=== PATIENT | female | born 1995 | race Caucasian/White ===

== ENCOUNTER 2017-04-14 18:00 | Emergency (ER) | payer BC ==
[2017-04-14 18:16] VITALS: BP 121/70
[2017-04-14] MEDS ORDERED: Take Home: Doxycycline 100 MG Tab, 4 Tab Pack PO ONE (18:37)
--- NOTE | 2017-04-16 09:01 | ER ---
Date of Service: 04/14/2017 SUBJECTIVE: Joanie presents to the emergency room with complaints of an earring that is stuck in her right earlobe. It is a very small brock earring that has pulled posteriorly through the earlobe and that portion is lodged in the lower lobe of the ear. The patient's mother was unable to get the back of the earring off the earlobe. They subsequently presented to the emergency room for help in removing the stud. PAST MEDICAL HISTORY: Unknown type cardiac arrhythmia. MEDICATIONS: Toprol-XL 25 mg daily. ALLERGIES: Sulfa. REVIEW OF SYSTEMS: Denies any fever or chills. She states that she has noticed some scant discharge coming from the right lower earlobe. PHYSICAL EXAMINATION: General: This is a 21-year-old female patient, who is in no acute distress. Vital Signs: Blood pressure is 121/70, pulse rate is 67, temperature is 36.3, respiratory rate 16, O2 saturations are 99%. Skin: Warm, pink, and dry. HEENT: Again, the brock stud is pulled into the earlobe retirement between the anterior and posterior hole in the earlobe. There is mild erythema noted to the earlobe with some scant clear discharge noted. Remainder of her physical examination is within normal limits. EMERGENCY ROOM COURSE: The earlobe was cleansed with chlorhexidine and a total of 1 mL of 1% lidocaine was used to anesthetize the lower earlobe. Using a curved Kalyani forceps, the back of the stud was removed. Subsequently, was able to push the stud out. I was able to express a small amount of clear discharge from the earlobe which was cultured. The patient remained stable in my care in the emergency room. ASSESSMENT: 1. Stuck hearing stud in right ear. 2. Cellulitis to right lower earlobe. PLAN: The patient will be discharged. I did start her on doxycycline 100 mg twice daily for 10 days. Keep the area open to the air as much as possible. Return if there is any increased discharge, redness, streaking, or other worrisome signs or symptoms. All questions were answered. MWK: 04/15/2017 18:48:31 MODL: 04/16/2017 00:16:52 /[id number]
== END 2017-04-14 18:49 | disposition home or self-care (01) ==
LOC: VM.ED 18:00
DX: T16.1XXA Foreign body in right ear, initial encounter (principal); H60.11 Cellulitis of right external ear; Z88.2 Allergy status to sulfonamides
CPT/HCPCS: 69200; 87070; 87077; 87147; 87186; 96372; 99282; A9270

== ENCOUNTER 2019-04-05 13:57 | Emergency (ER) | payer BC ==
[2019-04-05 14:18] VITALS: BP 122/74
[2019-04-05 15:24] LABS: CHLORIDE,CL 101 mmol/L (98-107); SODIUM,NA 140 mmol/L (136-145)
--- NOTE | 2019-04-05 15:27 | EDM.PDOC ---
ED HPI GENERAL MEDICAL PROBLEM - General Chief Complaint: General Stated Complaint: eyes are yellow Time Seen by Provider: 04/05/19 14:05 Source of Information: Reports: Patient History Limitations: Reports: No Limitations - History of Present Illness INITIAL COMMENTS - FREE TEXT/NARRATIVE: Pt. presents to ER with complaints of concerns of scleral icterus. Pt. was diagnosed with mono last . She states that the has been quite fatigued, nauseated, and has had decreased appetite. She states that she does have some diffuse upper abd. discomfort, more on the L side than the R. She states that her urine is dark in color. She states that she has been constipated. She has had some congestion and rhinorrhea. No bloody stools. No chest pain or shortness of breath. Onset: Today Onset Date: 04/05/19 Associated Symptoms: Reports: Fever/Chills, Malaise, Nausea/Vomiting, Weakness Generalized Pain Score (Numeric/FACES): 2 - Related Data Allergies Allergy/AdvReac Type Severity Reaction Status Date / Time Sulfa (Sulfonamide Allergy Rash Verified 04/05/19 14:10 Antibiotics) Home Meds: Home Meds Metoprolol Succinate [Toprol XL] 25 mg PO DAILY 11/24/16 [History] Albuterol [Proventil HFA] 1 puff IH ASDIRECTED 09/18/18 [History] Ibuprofen 400 mg PO Q4H PRN 04/05/19 [History] Ondansetron HCl [Ondansetron] 8 mg SL Q8H PRN 04/05/19 [History] Past Medical History Cardiovascular History: Reports: Arrhythmia - Past Surgical History HEENT Surgical History: Reports: Other (See Below) Other HEENT Surgeries/Procedures: [place] teeth Social & Family History - Tobacco Use Smoking Status *Q: Never Smoker ED ROS GENERAL - Review of Systems Review Of Systems: See Below Constitutional: Reports: Fever, Chills, Malaise, Weakness, Fatigue HEENT: Reports: No Symptoms Respiratory: Reports: No Symptoms Cardiovascular: Reports: No Symptoms Endocrine: Reports: No Symptoms GI/Abdominal: Reports: No Symptoms : Reports: No Symptoms Musculoskeletal: Reports: No Symptoms Skin: Reports: No Symptoms Neurological: Reports: No Symptoms Psychiatric: Reports: No Symptoms Hematologic/Lymphatic: Reports: No Symptoms Immunologic: Reports: No Symptoms ED EXAM, GENERAL - Physical Exam Exam: See Below Exam Limited By: No Limitations General Appearance: Alert, WD/WN, No Apparent Distress Eye Exam: Bilateral Eye: Other (possible very mild scleral icterus) Ears: Normal External Exam, Normal Canal, Hearing Grossly Normal, Normal TMs Ear Exam: Bilateral Ear: Auricle Normal, Canal Normal, TM normal Nose: Normal Inspection, Normal Mucosa, No Blood Throat/Mouth: Normal Lips, Normal Teeth, Normal Gums, Normal Oropharynx, Normal Voice, No Airway Compromise, Other (hypopharynx is erythematous) Head: Atraumatic, Normocephalic Neck: Normal Inspection, Supple, Non-Tender, Full Range of Motion Respiratory/Chest: No Respiratory Distress, Lungs Clear, Normal Breath Sounds, No Accessory Muscle Use, Chest Non-Tender Cardiovascular: Normal Peripheral Pulses, Regular Rate, Rhythm, No Edema, No Gallop, No JVD, No Murmur, No Rub Peripheral Pulses: 4+: Radial (L), Radial (R) GI/Abdominal: Normal Bowel Sounds, Soft, Non-Tender, No Organomegaly, No Distention, No Abnormal Bruit, No Mass, Pelvis Stable (Female) Exam: Deferred Rectal (Female) Exam: Deferred Back Exam: Normal Inspection, Full Range of Motion Extremities: Normal Inspection, Normal Range of Motion, Non-Tender, No Pedal Edema, Normal Capillary Refill Neurological: Alert, Oriented, CN II-XII Intact, Normal Cognition, Normal Gait, Normal Reflexes, No Motor/Sensory Deficits Psychiatric: Normal Affect, Normal Mood Skin Exam: Warm, Dry, Intact, Normal Color, No Rash Lymphatic: No Adenopathy Course - Vital Signs Last Recorded V/S: Last Vital Signs Temp 37.4 C 04/05/19 14:05 Pulse 90 04/05/19 14:05 Resp 16 04/05/19 14:05 BP 122/74 04/05/19 14:05 Pulse Ox 97 04/05/19 14:05 - Orders/Labs/Meds Orders: Active Orders 24 hr Category Date Time Status CYTOMEGALOVIRUS (CMV) AB, IGM [REF] Stat Lab 04/05/19 14:45 Received Labs: Laboratory Tests 04/05/19 04/05/19 04/05/19 Range/Units 14:45 14:45 14:45 WBC 6.6 (4.0-10.0) x10^3/uL RBC 4.89 (4.00-5.50) x10^6/uL Hgb 15.2 (12.0-16.0) g/dL Hct 42.8 (33.0-47.0) % MCV 87.5 (78.0-93.0) fL MCH 31.1 (26.0-32.0) pg MCHC 35.5 (32.0-36.0) g/dL RDW Coeff of Valentin 12.3 (10.0-15.0) % Plt Count 139 D (130-400) x10^3/uL Add Manual Diff Yes Neutrophils % (Manual) 15 L (50-80) % Band Neutrophils % 1 (0-6) % Lymphocytes % (Manual) 51 H (25-50) % Atypical Lymphs % 4 H (0) % Monocytes % (Manual) 16 H (2-11) % Eosinophils % (Manual) 1 (0-4) % Metamyelocytes % 6 H (0) % Myelocytes % 6 H (0) % Platelet Estimate Adequate Clumped Platelets Rare H PT 11.4 (10.0-12.8) SEC INR 1.0 L (2.0-3.5) Sodium 140 (136-145) mmol/L Potassium 4.0 (3.5-5.1) mmol/L Chloride 101 (98-107) mmol/L Carbon Dioxide 26 (21-32) mmol/L Anion Gap 17.0 (10-20) mmol/L BUN 11 (7-18) mg/dL Creatinine 1.0 (0.55-1.02) mg/dL Est Cr Clr Drug Dosing 89.85 mL/min Estimated GFR (MDRD) > 60 Glucose 78 (74-106) mg/dL Calcium 9.2 (8.5-10.1) mg/dL Corrected Calcium 9.60 (8.5-10.1) mg/dL Total Bilirubin 7.7 H (0.2-1.0) mg/dL AST 528 H (15-37) U/L ALT 694 H (14-59) U/L Alkaline Phosphatase 409 H (46-116) U/L Lactate Dehydrogenase 567 H (81-234) U/L C-Reactive Protein < 0.2 (<=0.9) mg/dL Total Protein 8.1 (6.4-8.2) g/dL Albumin 3.5 (3.4-5.0) g/dL Globulin 4.6 Albumin/Globulin Ratio 0.76 Amylase 36 (25-115) U/L Lipase 167 (73-393) U/L Departure - Departure Time of Disposition: 16:00 Disposition: Home, Self-Care 01 Clinical Impression: Mononucleosis, infectious, with hepatitis, Elevated transaminase level - Discharge Information Instructions: Infectious Mononucleosis Referrals: Radha Alicia PA-C [Primary Care Provider] - Forms: ED Department Discharge Additional Instructions: Follow-up in clinic tomorrow for repeat lab testing I would discontinue use of the tylenol at this time. Continue with the anali Return to ER if she is unable to keep down fluids - My Orders Last 24 Hours: My Active Orders 04/05/19 14:45 CYTOMEGALOVIRUS (CMV) AB, IGM [REF] Stat - Assessment/Plan Last 24 Hours: My Active Orders 04/05/19 14:45 CYTOMEGALOVIRUS (CMV) AB, IGM [REF] Stat Plan: I spoke with Dr. Alicia regarding this patient. She will follow-up with her tomorrow. She will need repeat labs at that time. I did order a RUQ ultrasound for tomorrow as well. She states that she feels well enough to go home. Advised her to return if she is unable to hold down fluids, if she has any increased discomfort, etc.
== END 2019-04-05 16:00 | disposition home or self-care (01) ==
LOC: VM.ED 13:57
DX: K75.9 Inflammatory liver disease, unspecified (principal); B27.90 Infectious mononucleosis, unspecified without complication; R74.0 Nonspecific elevation of levels of transaminase and lactic acid dehydrogenase [LDH]; Z88.2 Allergy status to sulfonamides
CPT/HCPCS: 36415; 80053; 82150; 83615; 83690; 85025; 85610; 86140; 86645; 99284

== ENCOUNTER 2019-04-06 16:28 | Observation (INO) | payer BC ==
[2019-04-06] MEDS ORDERED: Ibuprofen 200 MG Tab PO PRN (17:05)
[2019-04-06] MEDS ORDERED: Ondansetron 4 MG/2 ML SDV IV PRN (17:05)
[2019-04-06] MEDS ORDERED: Promethazine 25 MG Tab PO PRN (17:11)
[2019-04-06] MEDS ORDERED: Sodium Chloride 0.9% 500 ML IV SCH (17:15)
[2019-04-06] MEDS: Sodium Chloride 0.9% 1,000 ML IV SCH (18:49)
[2019-04-06] MEDS ORDERED: Albuterol 0.083% 2.5 MG/3 ML Neb Soln INH PRN (20:00)
[2019-04-06] MEDS: FLOVENT 110 MCG INH SCH (21:00)
[2019-04-06] MEDS ORDERED: Metoprolol Succinate 25 MG Tab.ER PO SCH (21:00)
--- NOTE | 2019-04-06 23:47 | HP ---
CHIEF COMPLAINT: Nausea and jaundice. HISTORY OF PRESENT ILLNESS: This is a 23-year-old female who had classical mono symptoms with sore throat and fatigue and fevers, diagnosed by [facility] testing on 03/31/2019, 6 days ago. She was recommended for symptomatic treatments, but became more nauseated on the 04/03/2019 and then on 04/05/2019 she presented to the ER and was found to have elevated bilirubin, actually, her mom had noted some yellowing in her eyes, it was up to 7.7, AST 528, and ALT 694. She has only been eating when she takes the Zofran. She does feel that is helping. She has not had a bowel movement in 1-week. She has not had good intake, but her sore throat is now better. She has not vomited since last and her temperature was only around 99 today. Otherwise, she has not had any trouble breathing. She has not had any shortness of breath or cough. 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 ALLERGIES: Include sulfa. MEDICATIONS: Her medication list does show her to have Zofran p.r.n., Flovent inhaler 2 times a day, Toprol 25 mg daily, albuterol as needed, Drysol, Differin gel and Flonase nasal spray. PAST MEDICAL HISTORY: Includes: 1. Allergic rhinitis, reactive airway disease, not felt to be asthma. 2. Sinus arrhythmia with heart rates in the past, up to the 190s. PAST SURGICAL HISTORY: Surgically, she has had a none listed. FAMILY HISTORY: Both parents are living. Father has asthma. 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 She denies any alcohol use. She has a boyfriend. She does not smoke. REVIEW OF SYSTEMS: General: Otherwise, she just felt very fatigued. She has had fever. Weight has stayed about the same. HEENT: Again, sore throat is improved. Cardiac: No chest pains. No recent palpitations. Respiratory: No breathing trouble. GI: She denies any abdominal pain. Otherwise, all systems reviewed and found to be negative. LABORATORY DATA: Her lab work done through the clinic today was to repeat a hepatic panel showed some improvement with AST down to 416, ALT down to 579, bilirubin 8.2, indirect 1.7, direct 6.5, albumin 3.8, alkaline phosphatase 459. INR was 1 yesterday. PHYSICAL EXAMINATION: Vital Signs: Do show her last menstrual period to have been on the 03/24/2019. Weight 140 pounds, blood pressure 112/64, respiratory rate 16, temperature 98, pulse 68, O2 of 98% on room air. Prior to getting fluids; her blood pressure was in the 80s, but she is a healthy athlete normally. Blood pressures are in the 90s to low on 100s. General: She is jaundiced, but in no acute distress. Heart: Regular rate and rhythm. S1, S2 without murmur. Lungs: Lung sounds are clear to auscultation bilaterally without crackles or wheezes. Abdomen: Has positive bowel sounds. Soft, nontender. Extremities: Warm and dry. No edema. Mental Status: She is alert. She is orientated x3. Eyes: Sclerae are icteric. ASSESSMENT: 1. Cordell-Sanders virus hepatitis. Did discuss with the GI physician on-call, who did recommend symptomatic management. He felt it would be unlikely to need further extensive workup. Did expect the bilirubin to start improving, but would trail the LFTs by a day or so. If things do not improve, we will arrange for right upper quadrant ultrasound. 2. Nausea, presumably due to the hepatitis. We will have her on IV Zofran, left p.r.n. Phenergan available, we can also add other things if needed. 3. Constipation. We will get her on some scheduled stool softeners and senna. Diet will be as tolerated. We will see how she does. 4. Reactive airway disease. We will have her inhalers available. 5. History of sinus tachycardia. She will continue on her Toprol. PLAN: At this point, the patient is admitted for observation. We will do IV fluids, IV nausea medications. Repeat lab work with an INR tomorrow. Code level 1. DVT prophylaxis not ordered as the patient's stay is likely going to be less than 24 hours. She is up and ambulatory. She is quite thin and at low risk for DVT. MKA: 04/06/2019 17:47:38 MODL: 04/06/2019 23:41:59 /[id number]
[2019-04-07] MEDS: Sodium Chloride 0.9% 1,000 ML IV SCH (02:54)
[2019-04-07 05:39] VITALS: BP 125/72
[2019-04-07] MEDS: FLOVENT 110 MCG INH SCH (07:38)
[2019-04-07 07:50] LABS: CHLORIDE,CL 105 mmol/L (98-107); SODIUM,NA 137 mmol/L (136-145)
[2019-04-07] MEDS ORDERED: Metoprolol Succinate 25 MG Tab.ER PO SCH (08:00)
[2019-04-07] MEDS ORDERED: Mometasone Furoate Powder 220 MCG/Puff 14 Dose Inhaler INH SCH (08:00)
--- NOTE | 2019-04-07 16:20 | DISCH ---
PRIMARY DISCHARGE DIAGNOSES: 1. Cordell-Sanders hepatitis. 2. Cholestatic jaundice due to Cordell-Sanders hepatitis. 3. Nausea secondary to Cordell-Sanders hepatitis and Cholestatic jaundice. 4. Recent mono infection. 5. History of sinus tachycardia. 6. Allergic rhinitis. 7. Reactive airway disease. 8. Constipation, resolved. REASON FOR ADMISSION: On the date of admission, this 23-year-old female followed up in the clinic after being in the ER with elevated liver enzymes. Her liver enzymes were trending down slightly, but her bilirubin went up to 8.2. Her peak ALT was 694, AST 528. She received 1 L of fluids as her blood pressures were low. Oral intake is poor due to nausea despite having oral Zofran. She did get a dose of IV Zofran in the clinic, was admitted for further IV fluids, and lab monitoring. This morning, does show some improvement in her lab work with ALT down to 471, AST 299, bilirubin down to 7.4, alkaline phosphatase at 433. She had some bowel movements after receiving senna. She is symptomatically feeling better. She did not require any IV nausea medications. She did have some cramping in the abdomen, but only before bowel movements. Otherwise, no abdominal pain. She is feeling like eating this morning. Overall, she is clinically improved and arrangements were made for her discharge. At the time of discharge, her vitals included a temperature of 98.7, pulse 67, blood pressure 125/72, respiratory rate 18, O2 of 98% on room air. PHYSICAL EXAMINATION: General: She is in no acute distress. Heart: Regular rate and rhythm with murmur. Lungs: Lung sounds are clear to auscultation bilaterally without crackles or wheezes. Abdomen: Has positive bowel sounds. Soft, nontender. Extremities: Warm and dry. No edema. Skin: She still has some mild jaundice appearance. Mental Status: Alert and orientated x3. DISCHARGE PLANS AND INSTRUCTIONS: She will follow up with Radha Alicia in the clinic on 04/16/2019. Lab work will be done this Saturday and then repeated in a week or 2 depending on need. No ultrasound at this point is needed, but she should not return to [facility] for at least 1 month. She may continue Zofran as needed for nausea. She may resume all her skin creams at home. She will take a stool softener, milk of magnesia only if needed and may continue Motrin 600 three times a day as needed for pain, although she states all of her joint and muscle pains have improved. MKA: 04/07/2019 08:27:28 MODL: 04/07/2019 16:12:44 /[id number]
== END 2019-04-07 09:30 | disposition home or self-care (01) ==
LOC: VM.MS 16:30
PROVIDERS: ADMIT Internal Medicine; ATTEND Internal Medicine
DX: R11.0 Nausea (principal); B00.81 Herpesviral hepatitis; B27.00 Gammaherpesviral mononucleosis without complication; K59.00 Constipation, unspecified; R00.0 Tachycardia, unspecified; J45.909 Unspecified asthma, uncomplicated; Z88.2 Allergy status to sulfonamides; Z79.51 Long term (current) use of inhaled steroids; Z79.899 Other long term (current) drug therapy
CPT/HCPCS: 36415; 80053; 85025; 85610; 96360; 96361; A9270; G0378; J7030

== ENCOUNTER 2019-04-10 19:27 | Emergency (ER) | payer BC ==
--- NOTE | 2019-04-10 19:58 | EDM.PDOC ---
ED HPI GENERAL MEDICAL PROBLEM - General Chief Complaint: ENT Problem Stated Complaint: Sore throat, recent diagnosis of [place] Time Seen by Provider: 04/10/19 19:35 Source of Information: Reports: Patient History Limitations: Reports: No Limitations - History of Present Illness INITIAL COMMENTS - FREE TEXT/NARRATIVE: Patient comes into the emergency department with complaint of sore throat. Patient states that her sore throat started approximately 2 days ago. She states that it is difficult to swallow. She denies having any fever however she states that she did feel chilled earlier today. She denies any pus pocket formation that she could tell. She denies any decrease in activity or oral intake. She states that she does have a diagnosis of mono approximately 2 weeks ago and has been having intermittent sore throat since then. She has felt great 3 or 4 days prior to have in the start of the sore throat again. She denies any chest pain, shortness of breath, GI upset, nausea or vomiting, or urinary issues. Patient is concerned that she could possibly have strep or complication of mono and would like to check it out. 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 - Related Data Allergies Allergy/AdvReac Type Severity Reaction Status Date / Time Sulfa (Sulfonamide Allergy Rash Verified 04/05/19 14:10 Antibiotics) Home Meds: Home Meds Metoprolol Succinate [Toprol XL] 25 mg PO DAILY 11/24/16 [History] Albuterol [Proventil HFA] 2 puff IH Q4HR PRN 09/18/18 [History] Ondansetron HCl [Ondansetron] 4 mg SL Q6H PRN 04/05/19 [History] Fluticasone Propionate [Flovent HFA 110 MCG] 2 puff IN BID 04/06/19 [History] Past Medical History Cardiovascular History: Reports: Arrhythmia Respiratory History: Reports: Asthma - Past Surgical History HEENT Surgical History: Reports: Other (See Below) Other HEENT Surgeries/Procedures: [place] teeth Social & Family History - Caffeine Use Caffeine Use: Reports: None ED ROS GENERAL - Review of Systems Review Of Systems: See Below Constitutional: Reports: No Symptoms HEENT: Reports: Throat Pain Respiratory: Reports: No Symptoms Cardiovascular: Reports: No Symptoms Endocrine: Reports: No Symptoms GI/Abdominal: Reports: No Symptoms : Reports: No Symptoms Musculoskeletal: Reports: No Symptoms Skin: Reports: No Symptoms Neurological: Reports: No Symptoms Psychiatric: Reports: No Symptoms Hematologic/Lymphatic: Reports: No Symptoms Immunologic: Reports: No Symptoms ED EXAM, GENERAL - Physical Exam Exam: See Below General Appearance: Alert, WD/WN, No Apparent Distress Eye Exam: Bilateral Eye: EOMI, PERRL Ears: Normal External Exam, Normal Canal, Hearing Grossly Normal, Normal TMs Ear Exam: Bilateral Ear: Auricle Normal, Canal Normal, TM normal Throat/Mouth: Normal Inspection, Normal Lips, Normal Teeth, Normal Gums, Normal Oropharynx, Normal Voice, No Airway Compromise, Inflammation (2+ tonsil right, no tonsil visualized left. no patechia or pus pockets noted) Head: Atraumatic, Normocephalic Neck: Normal Inspection, Supple, Non-Tender, Full Range of Motion. No: Limited Range of Motion, Lymphadenopathy (L), Lymphadenopathy (R), Tender Lateral, Tender Midline, Thyromegaly Respiratory/Chest: No Respiratory Distress, Lungs Clear, Normal Breath Sounds, No Accessory Muscle Use, Chest Non-Tender Cardiovascular: Normal Peripheral Pulses, Regular Rate, Rhythm Back Exam: Normal Inspection, Full Range of Motion Extremities: Normal Inspection, Normal Range of Motion Neurological: Alert, Oriented Skin Exam: Warm, Dry, Intact, Normal Color Departure - Departure Time of Disposition: 19:55 Disposition: Home, Self-Care 01 Condition: Good Clinical Impression: Sore throat - Discharge Information *PRESCRIPTION DRUG MONITORING PROGRAM REVIEWED*: Not Applicable *COPY OF PRESCRIPTION DRUG MONITORING REPORT IN PATIENT JAIMEE: Not Applicable Instructions: Sore Throat, [id number] Referrals: Radha Alicia PA-C [Primary Care Provider] - Additional Instructions: 1. rest 2. use salt water gargle 3. take ibuprofen and Tylenol as needed for pain and discomfort 4. Right not no indication for swabbing or suspecting strep throat. If your tempature arise great than 101.4, pus pockets on the tonsils, foul odor from the mouth, or purple spots on the tongue please return or follow up with your PCP for re-evaluation 5. activity and diet 6. Follow up as needed 7. Call with any questions or concerns you may have
[2019-04-10 20:04] VITALS: BP 106/63
== END 2019-04-10 20:05 | disposition home or self-care (01) ==
LOC: VM.ED 19:27
DX: J02.9 Acute pharyngitis, unspecified (principal); J45.909 Unspecified asthma, uncomplicated; Z88.2 Allergy status to sulfonamides; Z79.899 Other long term (current) drug therapy
CPT/HCPCS: 99282

== ENCOUNTER 2019-07-12 12:12 | Emergency (ER) | payer BC ==
[2019-07-12 12:26] VITALS: BP 122/76; PULSE 80
--- NOTE | 2019-07-12 12:45 | EDM.PDOC ---
ED HPI GENERAL MEDICAL PROBLEM - General Chief Complaint: Abdominal Pain Stated Complaint: STOMACH PAIN Time Seen by Provider: 07/12/19 12:27 Source of Information: Reports: Patient, Old Records, RN, RN Notes Reviewed History Limitations: Reports: No Limitations - History of Present Illness INITIAL COMMENTS - FREE TEXT/NARRATIVE: She has been having pain in mid lower abdomen which started this past week. On Saturday she starting having significant cramping. She has had something similar in the past which was a UTI> SHe was feeling nauseated also without actual vomiting. She had a zofram from previously whiich she took and this helped the nausea. She thought she had the stomach flu. She woke up at 4 am Sat with terrible cramping. She had a low grade fever earlier in the week which didn't last long. LMP June 21. Menses are usually regular. She gets menstrual cramps but not in the middle of the month. This weekend her bowels seem normal but last week it seemed that she was going more often. She had some change in color and such this past week which she attributed to coffee. No headache, No URI sx, some burning on urination. She has not noticed increased frequency but she goes often all the time. Onset: Gradual Onset Date: 07/05/19 Duration: Week(s):, Getting Worse, Waxing/Waning Location: Reports: Abdomen, Radiates to (lower back) Quality: Reports: Ache, Other (cramping intermittently) Severity: Severe Improves with: Reports: Heat Therapy Worsens with: Reports: Eating Associated Symptoms: Reports: Loss of Appetite, Malaise, Nausea/Vomiting. Denies: Diaphoresis, Shortness of Breath lower abd Pain Score (Numeric/FACES): 4 - Related Data Allergies Allergy/AdvReac Type Severity Reaction Status Date / Time Sulfa (Sulfonamide Allergy Rash Verified 07/12/19 12:23 Antibiotics) Home Meds: Home Meds Metoprolol Succinate [Toprol XL] 25 mg PO DAILY 11/24/16 [History] Albuterol [Proventil HFA] 2 puff IH Q4HR PRN 09/18/18 [History] Fluticasone Propionate [Flovent HFA 110 MCG] 2 puff IN BID 04/06/19 [History] Past Medical History Cardiovascular History: Reports: Arrhythmia Respiratory History: Reports: Asthma - Past Surgical History Head Surgeries/Procedures: Reports: Other (See Below) (wisdom teeth) HEENT Surgical History: Reports: Other (See Below) Other HEENT Surgeries/Procedures: Barry teeth, [place] 03/28/19 Social & Family History - Tobacco Use Smoking Status *Q: Never Smoker Tobacco Use Within Last Twelve Months: No Second Hand Smoke Exposure: No - Caffeine Use Caffeine Use: Reports: Coffee - Alcohol Use Alcohol Use History: Yes Alcohol Use in Last Twelve Months: Yes Alcohol Use Comment: She drinks rarely; about once per month about 3 drinks per time - Sexual History Sexual History: Reports: Single Partner - Living Situation & Occupation Living situation: Reports: Single Occupation: Student ED ROS GENERAL - Review of Systems Review Of Systems: See Below Constitutional: Reports: Malaise, Decreased Appetite. Denies: Fever, Chills HEENT: Reports: No Symptoms Respiratory: Reports: No Symptoms Cardiovascular: Reports: No Symptoms Endocrine: Reports: No Symptoms GI/Abdominal: Reports: Abdominal Pain, Decreased Appetite, Other (stool has been different past week) : Reports: Dysuria, Frequency Musculoskeletal: Reports: Joint Pain (she has pain in both knees from tendinosis when she plays volleyball) Skin: Reports: No Symptoms Neurological: Reports: No Symptoms Psychiatric: Reports: Anxiety Hematologic/Lymphatic: Reports: No Symptoms Immunologic: Reports: No Symptoms ED EXAM, GI/ABD - Physical Exam Exam: See Below Exam Limited By: No Limitations General Appearance: WD/WN, No Apparent Distress Eyes: Bilateral: Normal Appearance, EOMI Ears: Normal External Exam, Normal TMs Nose: Normal Inspection Throat/Mouth: Normal Inspection, Normal Lips, Normal Oropharynx, Normal Voice, No Airway Compromise Neck: Normal Inspection, Supple, Non-Tender. No: Lymphadenopathy (L), Lymphadenopathy (R), Thyromegaly Respiratory/Chest: No Respiratory Distress, Lungs Clear, Normal Breath Sounds, No Accessory Muscle Use Cardiovascular: Regular Rate, Rhythm, No Edema, No Murmur GI/Abdominal Exam: Normal Bowel Sounds, Soft, No Organomegaly, No Distention, No Mass, Tender (mild tenderness RLQ to palpation. No rebound or guarding or masses). No: Guarding, Rebound, Mass Back Exam: Normal Inspection, Full Range of Motion. No: CVA Tenderness (L), CVA Tenderness (R) Extremities: Normal Inspection, Normal Range of Motion, No Pedal Edema Neurological: Alert, Oriented, Normal Cognition, Normal Gait, No Motor/Sensory Deficits Psychiatric: Normal Affect, Normal Mood Skin Exam: Warm, Dry, Intact, Normal Color, No Rash Lymphatic: No Adenopathy Course - Vital Signs Last Recorded V/S: Last Vital Signs Temp 97.5 F 07/12/19 12:24 Pulse 80 07/12/19 12:24 Resp 16 07/12/19 12:24 BP 122/76 07/12/19 12:24 Pulse Ox - Orders/Labs/Meds Labs: Laboratory Tests 07/12/19 07/12/19 07/12/19 Range/Units 12:39 12:39 12:41 WBC 5.4 (4.0-10.0) x10^3/uL RBC 5.21 (4.00-5.50) x10^6/uL Hgb 15.3 D (12.0-16.0) g/dL Hct 45.1 (33.0-47.0) % MCV 86.6 (78.0-93.0) fL MCH 29.4 (26.0-32.0) pg MCHC 33.9 (32.0-36.0) g/dL RDW Coeff of Valentin 12.3 (10.0-15.0) % Plt Count 250 D (130-400) x10^3/uL Neut % (Auto) 63.7 (50.0-80.0) % Lymph % (Auto) 24.6 L (25.0-50.0) % [place] % (Auto) 10.0 (2.0-11.0) % Eos % (Auto) 1.3 (0.0-4.0) % Baso % (Auto) 0.4 (0.2-1.2) % Sodium (136-145) mmol/L Potassium (3.5-5.1) mmol/L Chloride (98-107) mmol/L Carbon Dioxide (21-32) mmol/L Anion Gap (10-20) mmol/L BUN (7-18) mg/dL Creatinine (0.55-1.02) mg/dL Est Cr Clr Drug Dosing mL/min Estimated GFR (MDRD) Glucose (74-106) mg/dL Calcium (8.5-10.1) mg/dL Corrected Calcium (8.5-10.1) mg/dL Total Bilirubin (0.2-1.0) mg/dL AST (15-37) U/L ALT (14-59) U/L Alkaline Phosphatase (46-116) U/L Total Protein (6.4-8.2) g/dL Albumin (3.4-5.0) g/dL Globulin Albumin/Globulin Ratio Urine Color Yellow (YELLOW) Urine Appearance Clear (CLEAR) Urine pH 7.0 (5.0-8.0) Ur Specific [place] 1.020 Urine Protein Negative (NEGATIVE) mg/dL Urine Glucose (UA) Negative (NEGATIVE) mg/dL Urine Ketones Negative (NEGATIVE) mg/dL Urine Occult Blood Negative (NEGATIVE) Urine Nitrite Negative (NEGATIVE) Urine Bilirubin Negative (NEGATIVE) Urine Urobilinogen 0.2 (0.2) EU/dL Ur Leukocyte Esterase Trace H (NEGATIVE) Urine RBC Not seen (NOT SEEN) /HPF Urine WBC 0-5 (NOT SEEN) /HPF Ur Squamous Epith Cells Rare (NEGATIVE) /HPF Urine Bacteria Few H (NEGATIVE) /HPF Urine Mucus Moderate H (NEGATIVE) /LPF Urine Yeast (Budding) Not seen Urine HCG, Qual Negative (NEGATIVE) 07/12/19 Range/Units 12:41 WBC (4.0-10.0) x10^3/uL RBC (4.00-5.50) x10^6/uL Hgb (12.0-16.0) g/dL Hct (33.0-47.0) % MCV (78.0-93.0) fL MCH (26.0-32.0) pg MCHC (32.0-36.0) g/dL RDW Coeff of Valentin (10.0-15.0) % Plt Count (130-400) x10^3/uL Neut % (Auto) (50.0-80.0) % Lymph % (Auto) (25.0-50.0) % [place] % (Auto) (2.0-11.0) % Eos % (Auto) (0.0-4.0) % Baso % (Auto) (0.2-1.2) % Sodium 141 (136-145) mmol/L Potassium 3.9 (3.5-5.1) mmol/L Chloride 102 (98-107) mmol/L Carbon Dioxide 27 (21-32) mmol/L Anion Gap 15.9 (10-20) mmol/L BUN 15 (7-18) mg/dL Creatinine 1.0 (0.55-1.02) mg/dL Est Cr Clr Drug Dosing 89.21 mL/min Estimated GFR (MDRD) > 60 Glucose 91 (74-106) mg/dL Calcium 9.3 (8.5-10.1) mg/dL Corrected Calcium 9.06 (8.5-10.1) mg/dL Total Bilirubin 0.4 (0.2-1.0) mg/dL AST 33 (15-37) U/L ALT 47 (14-59) U/L Alkaline Phosphatase 83 (46-116) U/L Total Protein 8.9 H (6.4-8.2) g/dL Albumin 4.3 (3.4-5.0) g/dL Globulin 4.6 Albumin/Globulin Ratio 0.93 Urine Color (YELLOW) Urine Appearance (CLEAR) Urine pH (5.0-8.0) Ur Specific [place] Urine Protein (NEGATIVE) mg/dL Urine Glucose (UA) (NEGATIVE) mg/dL Urine Ketones (NEGATIVE) mg/dL Urine Occult Blood (NEGATIVE) Urine Nitrite (NEGATIVE) Urine Bilirubin (NEGATIVE) Urine Urobilinogen (0.2) EU/dL Ur Leukocyte Esterase (NEGATIVE) Urine RBC (NOT SEEN) /HPF Urine WBC (NOT SEEN) /HPF Ur Squamous Epith Cells (NEGATIVE) /HPF Urine Bacteria (NEGATIVE) /HPF Urine Mucus (NEGATIVE) /LPF Urine Yeast (Budding) Urine HCG, Qual (NEGATIVE) Departure - Departure Time of Disposition: 13:46 Disposition: Home, Self-Care 01 Condition: Good Clinical Impression: Abdominal pain Qualifiers: Abdominal location: right lower quadrant Qualified Code(s): R10.31 - Right lower quadrant pain - Discharge Information *PRESCRIPTION DRUG MONITORING PROGRAM REVIEWED*: Not Applicable *COPY OF PRESCRIPTION DRUG MONITORING REPORT IN PATIENT JAIMEE: Not Applicable Referrals: Radha Alicia PA-C [Primary Care Provider] - Forms: ED Department Discharge - Problem List & Annotations (1) Abdominal pain SNOMED Code(s): 31435577 Code(s): R10.9 - UNSPECIFIED ABDOMINAL PAIN Status: Acute Qualifiers: Abdominal location: right upper quadrant Qualified Code(s): R10.11 - Right upper quadrant pain - Problem List Review Problem List Initiated/Reviewed/Updated: Yes
[2019-07-12 13:07] LABS: CHLORIDE,CL 102 mmol/L (98-107); SODIUM,NA 141 mmol/L (136-145)
[2019-07-12 13:08] LABS: ANION GAP 15.9 mmol/L (10-20)
== END 2019-07-12 13:46 | disposition home or self-care (01) ==
LOC: VM.ED 12:12
DX: R10.31 Right lower quadrant pain (principal); J45.909 Unspecified asthma, uncomplicated; Z88.2 Allergy status to sulfonamides; Z79.899 Other long term (current) drug therapy; Z79.51 Long term (current) use of inhaled steroids
CPT/HCPCS: 36415; 80053; 81001; 81025; 85025; 99284

== ENCOUNTER 2019-07-21 16:20 | Emergency (ER) | payer BC ==
[2019-07-21 16:44] VITALS: BP 143/79; PULSE 60
--- NOTE | 2019-07-21 16:47 | EDM.PDOC ---
ED HPI GENERAL MEDICAL PROBLEM - General Chief Complaint: Head Injury Stated Complaint: HEADACHE CONFUSION Time Seen by Provider: 07/21/19 16:32 Source of Information: Reports: Patient, Other History Limitations: Reports: No Limitations - History of Present Illness INITIAL COMMENTS - FREE TEXT/NARRATIVE: Patient is brought to the ER after being hit in the left side of the head by a volleyball. 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 Brought here by wellness trainer and student. She has history of 2 prior concussions. She did not lose consciousness. Is slightly confused. Knows month, birthday, name , unable to give me today's date. Has nausea, no vomiting. Lights, sounds make worse. Headache to front of head with radiation posteriorly. Walked into the ED without assistance. Onset: Today, Sudden Duration: Waxing/Waning Location: Reports: Head Associated Symptoms: Reports: Confusion, Headaches - Related Data Allergies Allergy/AdvReac Type Severity Reaction Status Date / Time Sulfa (Sulfonamide Allergy Rash Verified 07/12/19 12:23 Antibiotics) Home Meds: Home Meds Metoprolol Succinate [Toprol XL] 25 mg PO DAILY 11/24/16 [History] Albuterol [Proventil HFA] 2 puff IH Q4HR PRN 09/18/18 [History] Fluticasone Propionate [Flovent HFA 110 MCG] 2 puff IN BID 04/06/19 [History] Past Medical History Cardiovascular History: Reports: Arrhythmia Other Cardiovascular History: tachycardia Respiratory History: Reports: Asthma - Past Surgical History Head Surgeries/Procedures: Reports: Other (See Below) (wisdom teeth) HEENT Surgical History: Reports: Other (See Below) Other HEENT Surgeries/Procedures: [place] teeth, [place] 03/28/19 Social & Family History - Caffeine Use Caffeine Use: Reports: Coffee - Sexual History Sexual History: Reports: Single Partner - Living Situation & Occupation Living situation: Reports: Single Occupation: Student ED ROS GENERAL - Review of Systems Review Of Systems: See Below Constitutional: Reports: No Symptoms HEENT: Reports: No Symptoms Respiratory: Reports: No Symptoms Cardiovascular: Reports: No Symptoms Endocrine: Reports: No Symptoms GI/Abdominal: Reports: No Symptoms : Reports: No Symptoms Musculoskeletal: Reports: No Symptoms Skin: Reports: No Symptoms Neurological: Reports: Confusion, Headache Psychiatric: Reports: No Symptoms Hematologic/Lymphatic: Reports: No Symptoms Immunologic: Reports: No Symptoms ED EXAM, HEAD INJURY - Physical Exam Exam: See Below Exam Limited By: No Limitations General Appearance: Alert, WD/WN, No Apparent Distress Head: Atraumatic, Normocephalic Eyes: Bilateral Eye: EOMI, Normal Inspection, PERRL Ears: Normal TMs Nose: Normal Inspection, Normal Mucousa, No Blood Throat/Mouth: Normal Inspection, Normal Lips, Normal Teeth, Normal Gums, Normal Oropharynx, Normal Voice, No Airway Compromise Neck: Non-Tender, Full Range of Motion, Normal Alignment, Normal Inspection Respiratory: No Respiratory Distress, Lungs Clear, Normal Breath Sounds, No Accessory Muscle Use, Chest Non-Tender Cardiovascular: Normal Peripheral Pulses, Regular Rate, Rhythm, No Edema, No Gallop, No JVD, No Murmur, No Rub GI/Abdominal Exam: Normal Bowel Sounds, Soft, Non-Tender, No Organomegaly, No Distention, No Abnormal Bruit, No Mass Neurologic: donor services technician II-XII nml As Tested, No Motor/Sensory Deficits, Alert, Normal Mood/Affect - Laxmi Coma Score Best Eye Response ([place]): (4) Open Spontaneously Best Verbal Response (Laxmi): (5) Oriented Best Motor Response (Laxmi): (6) Obeys Commands Course - Orders/Labs/Meds Orders: Active Orders 24 hr Category Date Time Status Ondansetron [Take Home: Ondansetron ODT 4 MG, 2 Tab Med 07/21/19 16:40 Once Pack] 1 packet PO ONETIME ONE Ondansetron [Zofran ODT] Med 07/21/19 16:40 Once 4 mg PO ONETIME ONE - Re-Assessments/Exams Free Text/Narrative Re-Assessment/Exam: 07/21/19 16:51 No imaging due to grossly normal neurological status. Will give oral ondansetron for nausea, with take home pack of 2 additional. I did review signs and symptoms of concussions, when to return to the ED, rest. Reviewed with patient and 2 additional others including wellness trainer. I did recommend to exercise or return to play until concussion protocols have been passed. All questions answered. Departure - Departure Time of Disposition: 17:02 Disposition: Home, Self-Care 01 Condition: Good Clinical Impression: Concussion injury of brain - Discharge Information *PRESCRIPTION DRUG MONITORING PROGRAM REVIEWED*: Not Applicable *COPY OF PRESCRIPTION DRUG MONITORING REPORT IN PATIENT JAIMEE: Not Applicable Instructions: Concussion, Adult, [id number], Post-Concussion Syndrome, Easy- to-Read, Returning to Sports and Activities After a Concussion, Adult Referrals: Radha Alicia PA-C [Primary Care Provider] - Additional Instructions: Plan Plenty of rest Avoid all screens(tv, phone, computer) I would also recommend no school tomorrow unless you feel significantly better No sports or exercising until you go through concussion protocols at the school. If you participate in exercise and sports to early, you can prolong recovery time It is difficult to predict how long these symptoms will last Please return if you develop any of the following: uncontrolled vomiting, unequal pupils, illogical speech or slurring, headache uncontrolled by tylenol or ibuprofen, change in ability to walk, falling If you have any questions or concerns, please call us - Problem List & Annotations (1) Concussion injury of brain SNOMED Code(s): 162259019 Code(s): S06.0X9A - CONCUSSION W LOSS OF CONSCIOUSNESS OF UNSP DURATION, INIT Status: Acute Priority: Medium - Problem List Review Problem List Initiated/Reviewed/Updated: Yes - My Orders Last 24 Hours: My Active Orders 07/21/19 16:40 Ondansetron [Take Home: Ondansetron ODT 4 MG, 2 Tab Pack] 1 packet PO ONETIME ONE Ondansetron [Zofran ODT] 4 mg PO ONETIME ONE - Assessment/Plan Last 24 Hours: My Active Orders 07/21/19 16:40 Ondansetron [Take Home: Ondansetron ODT 4 MG, 2 Tab Pack] 1 packet PO ONETIME ONE Ondansetron [Zofran ODT] 4 mg PO ONETIME ONE Assessment:: concussion Plan: Plan Plenty of rest Avoid all screens(tv, phone, computer) I would also recommend no school tomorrow unless you feel significantly better No sports or exercising until you go through concussion protocols at the school. If you participate in exercise and sports to early, you can prolong recovery time It is difficult to predict how long these symptoms will last Please return if you develop any of the following: uncontrolled vomiting, unequal pupils, illogical speech or slurring, headache uncontrolled by tylenol or ibuprofen, change in ability to walk, falling If you have any questions or concerns, please call us
[2019-07-21] MEDS: Take Home: Ondansetron 4 MG Tab.DIS, 2 Tab Pack PO ONE (16:57)
[2019-07-21] MEDS: Ondansetron 4 MG Tab.DIS PO ONE (16:57)
== END 2019-07-21 17:03 | disposition home or self-care (01) ==
LOC: VM.ED 16:20
DX: S06.0X0A Concussion without loss of consciousness, initial encounter (principal); J45.909 Unspecified asthma, uncomplicated; Z88.2 Allergy status to sulfonamides; Z79.899 Other long term (current) drug therapy; W21.06XA Struck by volleyball, initial encounter; Y93.68 Activity, volleyball (beach) (court)
CPT/HCPCS: 99282; A9270-GY

== ENCOUNTER 2019-10-23 15:18 | Inpatient (IN) | payer BC ==
[2019-10-23] MEDS ORDERED: Acetaminophen 325 MG Tab PO PRN (15:57)
[2019-10-23] MEDS ORDERED: Ibuprofen 200 MG Tab PO PRN (15:57)
[2019-10-23] MEDS ORDERED: Azithromycin 250 MG Tab PO ONE (15:59)
[2019-10-23] MEDS ORDERED: methylPREDNISolone Sodium Succinate 40 MG/1 ML SDV IVPUSH ONE (15:59)
--- NOTE | 2019-10-23 16:12 | PCM.HP.2 ---
H&P History of Present Illness - General Date of Service: 10/23/19 Admit Problem/Dx: Admission Diagnosis/Problem Admission Diagnosis/Problem Asthma Source of Information: Patient History Limitations: Reports: No Limitations - History of Present Illness Initial Comments - Free Text/Narative: Ms. Valentin is a 24 yo female who presented to clinic today for evaluation of increasing shortness of breath over the past 24 hours. Symptoms initially started with a URI 3 weeks ago. At that time, symptoms included nasal congestion , rhinorrhea, sore throat, and cough. All of the symptoms resolved except for her cough. The cough has persisted for the past 3 weeks and has actually worsened over the past 5 days. Cough is productive of thick white sputum. She has not had any fever, chills, or night sweats that she knew of but her temperature was elevated in clinic to 100.2. She has not had any myalgias. She has had increased chest tightness and shortness of breath over this past week as well. She has been taking OTC cough/cold medicines without much relief in symptoms. Therefore, she was seen in urgent care yesterday and was prescribed biaxin and prednisone. Despite this, her symptoms really have not improved. She has continued using her albuterol every 3 hours at least without much relief in symptoms. On her [address] from [facility], she had to use her inhaler 3 times. She states she feels like she is constantly on the verge of a "full blown " asthma attack given persistent chest tightness and shortness of breath even at rest. She is surprised the prednisone did not work as this was very effective fairly quickly after she started it last spring. In addition to the above symptoms, she also had a GI illness this week. She had non-bloody diarrhea and non-bloody emesis. No abdominal pain or fever. Those symptoms have improved. - Related Data Allergies/Adverse Reactions: Allergies Allergy/AdvReac Type Severity Reaction Status Date / Time Sulfa (Sulfonamide Allergy Rash Verified 07/12/19 12:23 Antibiotics) Home Medications: Home Meds Metoprolol Succinate [Toprol XL] 25 mg PO DAILY 11/24/16 [History] Albuterol [Proventil HFA] 2 puff IH Q4HR PRN 09/18/18 [History] Fluticasone Propionate [Flovent HFA 110 MCG] 2 puff IN BID 04/06/19 [History] Clarithromycin 500 mg PO BID 10/23/19 [History] Fluticasone Propionate [Flonase] 1 spray IN BID 10/23/19 [History] predniSONE [Prednisone] 20 mg PO BID 10/23/19 [History] Past Medical History Cardiovascular History: Reports: Arrhythmia Other Cardiovascular History: tachycardia Respiratory History: Reports: Asthma - Past Surgical History Head Surgeries/Procedures: Reports: Other (See Below) HEENT Surgical History: Reports: Other (See Below) Other HEENT Surgeries/Procedures: [place] teeth, [place] 03/28/19 Social & Family History - Family History Respiratory: Reports: Asthma - Tobacco Use Smoking Status *Q: Never Smoker - Caffeine Use Caffeine Use: Reports: Coffee - Alcohol Use Alcohol Use in Last Twelve Months: Yes Alcohol Use Frequency: Monthly - Recreational Drug Use Recreational Drug Use: No - Sexual History Sexual History: Reports: Single Partner - Living Situation & Occupation Living situation: Reports: Single, with Family Occupation: Student H&P Review of Systems - Review of Systems: Review Of Systems: See Below General: Reports: No Symptoms HEENT: Reports: No Symptoms Pulmonary: Reports: Shortness of Breath, Cough Cardiovascular: Reports: No Symptoms Gastrointestinal: Reports: Diarrhea, Nausea, Vomiting Genitourinary: Reports: No Symptoms Musculoskeletal: Reports: No Symptoms Skin: Reports: No Symptoms Psychiatric: Reports: No Symptoms Neurological: Reports: No Symptoms Exam - Exam Exam: See Below - Vital Signs Vital Signs: Last Vital Signs Temp 36.6 C 10/23/19 15:57 Pulse 89 10/23/19 15:57 Resp BP 132/76 10/23/19 15:57 Pulse Ox 100 10/23/19 15:57 Weight: 61.689 kg - Exam General: Alert, Oriented, Cooperative, Mild Distress HEENT: Conjunctiva Clear, Mucosa Moist & [place], Posterior Pharynx Clear, Pupils Equal, Pupils Reactive, TMs Clear Neck: Supple, Trachea Midline. No: Lymphadenopathy, Thyromegaly Lungs: Crackles (RLL), Rhonchi (RLL), Wheezing (throughout) Cardiovascular: Regular Rhythm, Normal S1, Normal S2, Tachycardia GI/Abdominal Exam: Normal Bowel Sounds, Soft, Non-Tender, No Organomegaly, No Distention, No Mass Extremities: Non-Tender, No Pedal Edema, Normal Capillary Refill Peripheral Pulses: 2+: Radial (L), Radial (R) Skin: Warm, Dry, Intact - Patient Data Result Diagrams: 10/23/19 16:12 10/23/19 16:12 Sepsis Event Note - Evaluation Sepsis Screening Result: No Definite Risk - Focused Exam Vital Signs: Vital Signs Temp Pulse BP Pulse Ox 10/23/19 15:57 36.6 C 89 132/76 100 Date Exam was Performed: 10/23/19 Time Exam was Performed: 17:28 - Problem List (1) Community acquired pneumonia SNOMED Code(s): 830395430 ICD Code: J18.9 - PNEUMONIA, UNSPECIFIED ORGANISM Status: Acute Current Visit: Yes Qualifiers: Laterality: right Lung location: lower lobe of lung Qualified Code(s): J18.9 - Pneumonia, unspecified organism (2) Asthma with acute exacerbation SNOMED Code(s): 852369238 ICD Code: J45.901 - UNSPECIFIED ASTHMA WITH (ACUTE) EXACERBATION Status: Acute Current Visit: Yes Qualifiers: Asthma severity: moderate Asthma persistence: persistent Qualified Code(s ): J45.41 - Moderate persistent asthma with (acute) exacerbation (3) Sinus arrhythmia SNOMED Code(s): 45439992 ICD Code: I49.8 - OTHER SPECIFIED CARDIAC ARRHYTHMIAS Status: Chronic Current Visit: Yes Problem List Initiated/Reviewed/Updated: Yes Orders Last 24hrs: Active Orders 24 hr Category Date Time Status Admission Status [Patient Status] [ADT] Routine ADT 10/23/19 15:20 Active Dietary Supplements [RC] BIDMEALS Care 10/23/19 16:00 Active Notify Provider Vital Signs [RC] ASDIRECTED Care 10/23/19 15:58 Active Oxygen Therapy [RC] PRN Care 10/23/19 15:57 Active RT Aerosol Therapy [RC] ASDIRECTED Care 10/23/19 16:01 Active Up With Assistance [RC] ASDIRECTED Care 10/23/19 15:57 Active VTE/DVT Education [RC] PER UNIT ROUTINE Care 10/23/19 15:57 Active Vital Signs [RC] Q4H Care 10/23/19 15:57 Active Regular Diet [DIET] Diet 10/23/19 Dinner Active BASIC METABOLIC PANEL,BMP [CHEM] Stat Lab 10/23/19 15:57 Ordered C-REACTIVE PROTEIN [CHEM] Stat Lab 10/23/19 15:57 Ordered CBC WITH AUTO DIFF [HEME] Stat Lab 10/23/19 15:57 Ordered INFLUENZA A+B AG SCREEN [RM] Stat Lab 10/23/19 15:57 Ordered Acetaminophen [Tylenol] Med 10/23/19 15:57 Ordered 650 mg PO Q4H PRN Albuterol [Proventil Neb Soln] Med 10/23/19 16:02 Ordered 2.5 mg NEB Q2H PRN Albuterol [Proventil Neb Soln] Med 10/23/19 19:00 Ordered 2.5 mg NEB Q4HRRT Azithromycin [Zithromax] Med 10/23/19 15:59 Once 500 mg PO ONETIME ONE Ibuprofen [Motrin] Med 10/23/19 15:57 Ordered 400 mg PO Q6H PRN cefTRIAXone [Rocephin] Med 10/23/19 16:00 Ordered 1 gm IVPUSH Q24H methylPREDNISolone Sod Succ [Solu-MEDROL] Med 10/23/19 15:59 Once 40 mg IVPUSH ONETIME ONE Resuscitation Status Routine Resus Stat 10/23/19 15:57 Ordered Medication Orders Acetaminophen (Tylenol) 650 mg PO Q4H PRN PRN Reason: Pain (Mild 1-3)/fever Albuterol (Proventil Neb Soln) 2.5 mg NEB Q4HRRT [facility] Albuterol (Proventil Neb Soln) 2.5 mg NEB Q2H PRN PRN Reason: shortness of breath, cough Azithromycin (Zithromax) 500 mg PO ONETIME ONE Stop: 10/23/19 16:00 Ceftriaxone Sodium (Rocephin) 1 gm IVPUSH Q24H KERRY Ibuprofen (Motrin) 400 mg PO Q6H PRN PRN Reason: Pain (mild 1-3) Methylprednisolone Sodium Succinate (Solu-Medrol) 40 mg IVPUSH ONETIME ONE Stop: 10/23/19 16:00 Assessment/Plan Comment:: 24 yo female admitted with CAP and asthma exacerbation after failing outpatient treatment. #1 Community Acquired Pneumonia #2 Asthma with acute exacerbation - Patient has RLL pneumonia on x-ray done in clinic. - WBC and CRP normal but she does have a left shift on her WBC. - Given exam and x-ray findings, recommend doing antibiotics in addition to steroid treatments. - Ceftriaxone and azithromycin ordered. - Albuterol scheduled q4 hours with q2 hours PRN. - Solu-medrol x 1 dose tonight, then higher oral prednisone tomorrow am. - Hold flovent while hospitalized. - Influenza swab done and negative. #3 Sinus arrhythmia - Patient has been on metoprolol for 3 years and has never had asthma issues related to this; therefore, will continue. Patient will be admitted to acute status due to diagnoses as above - anticipate dismissal home tomorrow or Saturday. Repeat labs in the am. Treatment plan as outlined above. No indication for any VTE prophylaxis - ambulation is encouraged. If she ends up staying >48 hours, can reconsider this. Code status is full - discussed on admission.
[2019-10-23 16:35] LABS: CHLORIDE,CL 104 mmol/L (98-107); SODIUM,NA 143 mmol/L (136-145)
[2019-10-23 16:45] LABS: ANION GAP 19.2 mmol/L (10-20)
[2019-10-23] MEDS: cefTRIAXone 1 GM Vial IVPUSH SCH (16:46)
[2019-10-23] MEDS: Albuterol 0.083% 2.5 MG/3 ML Neb Soln NEB SCH ×2 (18:18→23:03)
[2019-10-23] MEDS: Albuterol 0.083% 2.5 MG/3 ML Neb Soln NEB PRN (19:33)
[2019-10-24] MEDS: Albuterol 0.083% 2.5 MG/3 ML Neb Soln NEB SCH ×6 (02:59→22:55)
[2019-10-24] MEDS ORDERED: Metoprolol Succinate 25 MG Tab.ER PO SCH ×2 (08:00→20:00)
[2019-10-24] MEDS: predniSONE 20 MG Tab PO SCH (08:05)
[2019-10-24] MEDS: Azithromycin 250 MG Tab PO SCH (08:06)
--- NOTE | 2019-10-24 09:32 | PCM.PN ---
- General Info Date of Service: 10/24/19 Admission Dx/Problem (Free Text): Admission Diagnosis/Problem Admission Diagnosis/Problem CAP Acute Asthma exacerbation Subjective Update: Patient offers no specific complaints. She states she is feeling a little better from admission. She did need nebs every four hours and a PRN last night for increased wheezing. She states she continues to expectorate a white/yellow phlegm. Denies any SOB. She is ambulating independently. Denies any problems with urination or BM's. Tolerating diet ok. Denies having any pain. Functional Status: Reports: Pain Controlled, Tolerating Diet, Ambulating, Urinating. Denies: New Symptoms Pain Score: 0 - Review of Systems General: Denies: Fever, Chills Pulmonary: Reports: Shortness of Breath, Cough, Sputum Cardiovascular: Denies: Chest Pain, Palpitations Gastrointestinal: Denies: Abdominal Pain, Nausea, Vomiting Skin: Reports: No Symptoms Neurological: Reports: No Symptoms - Patient Data Vitals - Most Recent: Last Vital Signs Temp 97.8 F 10/24/19 05:55 Pulse 61 10/24/19 05:55 Resp 18 10/24/19 05:55 BP 119/63 10/24/19 05:55 Pulse Ox 100 10/24/19 07:18 Weight - Most Recent: 136 lb I&O - Last 24 Hours: Intake & Output 10/23/19 10/24/19 10/24/19 22:59 06:59 14:59 Intake Total 2400 800 360 Output Total 1400 600 Balance 1000 200 360 Lab Results Last 24 Hours: Laboratory Results - last 24 hr 10/23/19 10/23/19 10/24/19 Range/Units 16:12 16:12 08:48 WBC 8.3 9.3 (4.0-10.0) x10^3/uL RBC 5.03 4.22 (4.00-5.50) x10^6/uL Hgb 14.9 12.5 D (12.0-16.0) g/dL Hct 42.7 36.6 (33.0-47.0) % MCV 84.9 86.7 (78.0-93.0) fL MCH 29.6 29.6 (26.0-32.0) pg MCHC 34.9 34.2 (32.0-36.0) g/dL RDW Coeff of Valentin 12.2 12.3 (10.0-15.0) % Plt Count 275 231 (130-400) x10^3/uL Neut % (Auto) 90.0 H 79.0 (50.0-80.0) % Lymph % (Auto) 8.0 L 14.9 L (25.0-50.0) % [place] % (Auto) 1.9 L 6.0 (2.0-11.0) % Eos % (Auto) 0.0 0.0 (0.0-4.0) % Baso % (Auto) 0.1 L 0.1 L (0.2-1.2) % Sodium 143 (136-145) mmol/L Potassium 4.2 (3.5-5.1) mmol/L Chloride 104 (98-107) mmol/L Carbon Dioxide 24 (21-32) mmol/L Anion Gap 19.2 (10-20) mmol/L BUN 18 (7-18) mg/dL Creatinine 1.0 (0.55-1.02) mg/dL Est Cr Clr Drug Dosing 85.94 mL/min Estimated GFR (MDRD) > 60 Glucose 107 H (74-106) mg/dL Calcium 9.9 (8.5-10.1) mg/dL C-Reactive Protein < 0.2 (<=0.9) mg/dL 10/24/19 Range/Units 08:48 WBC (4.0-10.0) x10^3/uL RBC (4.00-5.50) x10^6/uL Hgb (12.0-16.0) g/dL Hct (33.0-47.0) % MCV (78.0-93.0) fL MCH (26.0-32.0) pg MCHC (32.0-36.0) g/dL RDW Coeff of Valentin (10.0-15.0) % Plt Count (130-400) x10^3/uL Neut % (Auto) (50.0-80.0) % Lymph % (Auto) (25.0-50.0) % [place] % (Auto) (2.0-11.0) % Eos % (Auto) (0.0-4.0) % Baso % (Auto) (0.2-1.2) % Sodium (136-145) mmol/L Potassium (3.5-5.1) mmol/L Chloride (98-107) mmol/L Carbon Dioxide (21-32) mmol/L Anion Gap (10-20) mmol/L BUN (7-18) mg/dL Creatinine (0.55-1.02) mg/dL Est Cr Clr Drug Dosing mL/min Estimated GFR (MDRD) Glucose (74-106) mg/dL Calcium (8.5-10.1) mg/dL C-Reactive Protein < 0.2 (<=0.9) mg/dL [facility] Results Last 24 Hours: Microbiology 10/23/19 16:05 Influenza Type A Antigen Screen - Final Nasopharyngeal Swab NEGATIVE INFLUENZA A VIRUS AG REFERENCE RANGE: NEGATIVE Influenza Type B Antigen Screen - Final NEGATIVE INFLUENZA B VIRUS AG REFERENCE RANGE: NEGATIVE Med Orders - Current: Current Medications Acetaminophen (Tylenol) 650 mg PO Q4H PRN PRN Reason: Pain (Mild 1-3)/fever Albuterol (Proventil Neb Soln) 2.5 mg NEB Q4HRRT [facility] Last Admin: 10/24/19 07:14 Dose: 2.5 mg Albuterol (Proventil Neb Soln) 2.5 mg NEB Q2H PRN PRN Reason: shortness of breath, cough Last Admin: 10/23/19 19:33 Dose: 2.5 mg Azithromycin (Zithromax) 250 mg PO DAILY [facility] Last Admin: 10/24/19 08:06 Dose: 250 mg Ceftriaxone Sodium (Rocephin) 1 gm IVPUSH Q24H [facility] Last Admin: 10/23/19 16:46 Dose: 1 gm Ibuprofen (Motrin) 400 mg PO Q6H PRN PRN Reason: Pain (mild 1-3) Metoprolol Succinate (Toprol Xl) 25 mg PO BEDTIME [facility] Prednisone (Prednisone) 60 mg PO WITHBREAKFAST [facility] Last Admin: 10/24/19 08:05 Dose: 60 mg Discontinued Medications Azithromycin (Zithromax) 500 mg PO ONETIME ONE Stop: 10/23/19 16:00 Last Admin: 10/23/19 16:46 Dose: 500 mg Methylprednisolone Sodium Succinate (Solu-Medrol) 40 mg IVPUSH ONETIME ONE Stop: 10/23/19 16:00 Last Admin: 10/23/19 16:46 Dose: 40 mg Metoprolol Succinate (Toprol Xl) 25 mg PO DAILY [facility] - Exam Quality Assessment: No: DVT Prophylaxis, Skin Breakdown General: Alert, Oriented, Cooperative, No Acute Distress Lungs: Normal Respiratory Effort, Crackles (RLL), Rhonchi (RLL). No: Wheezing Cardiovascular: Regular Rate, Regular Rhythm GI/Abdominal Exam: Normal Bowel Sounds, Soft, Non-Tender Skin: Warm, Dry, Intact Neurological: No New Focal Deficit Sepsis Event Note - Evaluation Sepsis Screening Result: No Definite Risk - Focused Exam Vital Signs: Vital Signs Temp Temp Pulse Resp BP Pulse Ox Pulse Ox 10/24/19 07:18 100 10/24/19 05:55 97.8 F 61 18 119/63 99 10/24/19 02:00 97.7 F 78 17 99/39 L 95 Date Exam was Performed: 10/24/19 Time Exam was Performed: 09:23 - Problem List Review Problem List Initiated/Reviewed/Updated: Yes - Assessment Assessment:: 1. Community Acquired Pneumonia, improving 2. Acute Asthma exacerbation, improving 3. Sinus Arrhythmia, stable - Plan Plan:: Hospital day #2 for a 24 yo female with a past medical history of Asthma and Sinus Arrhythmia admitted with CAP and asthma exacerbation yesterday after failing outpatient treatment. Continue with IV Rocephin and Azith for now given today's assessment finding and increase use of nebs overnight. Will have nursing do IS and C/DB Q2H while awake. No other changes to medications at this point. Overall, patient is improving. Encourage ambulation of DVT prophylaxis. Discussed POC with patient and mother at bedside. Will keep acute at least one more day. Anticipate discharge home tomorrow.
[2019-10-24] MEDS: cefTRIAXone 1 GM Vial IVPUSH SCH (15:23)
[2019-10-24] MEDS: Albuterol 0.083% 2.5 MG/3 ML Neb Soln NEB PRN (19:29)
[2019-10-25] MEDS: Albuterol 0.083% 2.5 MG/3 ML Neb Soln NEB SCH ×3 (03:06→10:41)
[2019-10-25 05:53] VITALS: BP 108/50; PULSE 47
[2019-10-25] MEDS: Azithromycin 250 MG Tab PO SCH (08:11)
[2019-10-25] MEDS: predniSONE 20 MG Tab PO SCH (08:11)
[2019-10-25] MEDS: cefTRIAXone 1 GM Vial IVPUSH SCH (10:53)
--- NOTE | 2019-10-26 06:13 | PCM.DCSUM1 ---
Discharge Summary - Hospital Course Free Text/Narrative:: Pt. was admitted acutely through the clinic by Dr. Estrada for CAP. Pt. has been hospitalized for 2 days. She has been receiving IV rocephin and azithromycin. Overall she states that she has been feeling much better. She is tolerating food. She has been up ambulating. She denies any shortness of breath. Pt. is requesting discharge at this time. - Discharge Data Discharge Date: 10/25/19 Discharge Disposition: Home, Self-Care 01 Condition: Good - Referral to Home Health Primary Care Physician: Emily Estrada MD - Discharge Diagnosis/Problem(s) (1) Asthma with acute exacerbation SNOMED Code(s): 031461577 ICD Code: J45.901 - UNSPECIFIED ASTHMA WITH (ACUTE) EXACERBATION Status: Acute Qualifiers: Asthma severity: moderate Asthma persistence: persistent Qualified Code(s ): J45.41 - Moderate persistent asthma with (acute) exacerbation (2) Community acquired pneumonia SNOMED Code(s): 705292032 ICD Code: J18.9 - PNEUMONIA, UNSPECIFIED ORGANISM Status: Acute Qualifiers: Laterality: right Lung location: lower lobe of lung Qualified Code(s): J18.9 - Pneumonia, unspecified organism - Discharge Plan Home Medications: Home Meds Metoprolol Succinate [Toprol XL] 25 mg PO DAILY 11/24/16 [History] Albuterol [Proventil HFA] 2 puff IH Q4HR PRN 09/18/18 [History] Fluticasone Propionate [Flovent HFA 110 MCG] 2 puff IN BID 04/06/19 [History] Clarithromycin 500 mg PO BID 10/23/19 [History] Fluticasone Propionate [Flonase] 1 spray IN BID 10/23/19 [History] predniSONE [Prednisone] 20 mg PO BID 10/23/19 [History] Acetaminophen [Tylenol] 650 mg PO Q4H PRN tablet 10/25/19 [Rx] Albuterol [Proventil Neb Soln] 2.5 mg NEB Q4HRRT neb 10/25/19 [Rx] Azithromycin [Zithromax] 250 mg PO DAILY tablet 10/25/19 [Rx] Ibuprofen [Motrin] 400 mg PO Q6H PRN tablet 10/25/19 [Rx] predniSONE 60 mg PO WITHBREAKFAST tablet 10/25/19 [Rx] - Discharge Summary/Plan Comment DC Time >30 min.: Yes Discharge Summary/Plan Comment: Home to rest. Increase intake of fluids. Pt. was given a total of 3 days worth of rocephin during her stay, and will be continued on oral azithromycin 250mg PO for the next 2 days. Tylenol and ibuprofen as needed for fever/discomfort. Continue with prednisone and albuterol inhaler. All questions were answered. - General Info Functional Status: Reports: Pain Controlled - Review of Systems General: Reports: No Symptoms HEENT: Reports: No Symptoms Pulmonary: Reports: Cough Cardiovascular: Reports: No Symptoms Gastrointestinal: Reports: No Symptoms Genitourinary: Reports: No Symptoms Musculoskeletal: Reports: No Symptoms Skin: Reports: No Symptoms Neurological: Reports: No Symptoms Psychiatric: Reports: No Symptoms - Patient Data Vitals - Most Recent: Last Vital Signs Temp 36.7 C 10/25/19 05:49 Pulse 47 L 10/25/19 05:49 Resp 17 10/25/19 05:49 BP 108/50 L 10/25/19 05:49 Pulse Ox 100 10/25/19 05:49 Weight - Most Recent: 61.689 kg I&O - Last 24 hours: Intake & Output 10/25/19 10/25/19 10/26/19 14:59 22:59 06:59 Intake Total 180 Balance 180 Lab Results - Last 24 hrs: Laboratory Results - last 24 hr 10/25/19 Range/Units 07:36 WBC 7.9 (4.0-10.0) x10^3/uL RBC 4.41 (4.00-5.50) x10^6/uL Hgb 13.1 (12.0-16.0) g/dL Hct 38.6 (33.0-47.0) % MCV 87.5 (78.0-93.0) fL MCH 29.7 (26.0-32.0) pg MCHC 33.9 (32.0-36.0) g/dL RDW Coeff of Valentin 12.6 (10.0-15.0) % Plt Count 231 (130-400) x10^3/uL Neut % (Auto) 64.6 (50.0-80.0) % Lymph % (Auto) 28.4 (25.0-50.0) % [place] % (Auto) 6.6 (2.0-11.0) % Eos % (Auto) 0.3 (0.0-4.0) % Baso % (Auto) 0.1 L (0.2-1.2) % Med Orders - Current: Current Medications Discontinued Medications Acetaminophen (Tylenol) 650 mg PO Q4H PRN PRN Reason: Pain (Mild 1-3)/fever Albuterol (Proventil Neb Soln) 2.5 mg NEB Q4HRRT [facility] Last Admin: 10/25/19 10:41 Dose: 2.5 mg Albuterol (Proventil Neb Soln) 2.5 mg NEB Q2H PRN PRN Reason: shortness of breath, cough Last Admin: 10/24/19 19:29 Dose: 2.5 mg Azithromycin (Zithromax) 500 mg PO ONETIME ONE Stop: 10/23/19 16:00 Last Admin: 10/23/19 16:46 Dose: 500 mg Azithromycin (Zithromax) 250 mg PO DAILY [facility] Last Admin: 10/25/19 08:11 Dose: 250 mg Ceftriaxone Sodium (Rocephin) 1 gm IVPUSH Q24H [facility] Last Admin: 10/25/19 10:53 Dose: 1 gm Ibuprofen (Motrin) 400 mg PO Q6H PRN PRN Reason: Pain (mild 1-3) Methylprednisolone Sodium Succinate (Solu-Medrol) 40 mg IVPUSH ONETIME ONE Stop: 10/23/19 16:00 Last Admin: 10/23/19 16:46 Dose: 40 mg Metoprolol Succinate (Toprol Xl) 25 mg PO DAILY [facility] Metoprolol Succinate (Toprol Xl) 25 mg PO BEDTIME [facility] Last Admin: 10/24/19 19:29 Dose: 25 mg Prednisone (Prednisone) 60 mg PO WITHBREAKFAST [facility] Last Admin: 10/25/19 08:11 Dose: 60 mg - Exam General: Reports: Alert, Oriented Lungs: Reports: Normal Respiratory Effort, Rhonchi Cardiovascular: Reports: Regular Rate, Regular Rhythm GI/Abdominal Exam: Normal Bowel Sounds, Soft, Non-Tender, No Organomegaly, No Distention, No Abnormal Bruit, No Mass, Pelvis Stable (Female) Exam: Deferred Rectal (Female) Exam: Deferred Back Exam: Reports: Normal Inspection, Full Range of Motion Extremities: Normal Inspection, Normal Range of Motion, Non-Tender, No Pedal Edema, Normal Capillary Refill Skin: Reports: Warm, Dry, Intact Wound/Incisions: Reports: Healing Well Neurological: Reports: No New Focal Deficit Psy/Mental Status: Reports: Alert, Normal Affect, Normal Mood
== END 2019-10-25 11:17 | disposition home or self-care (01) | DRG 141 ==
LOC: VM.MS 15:35
PROVIDERS: ADMIT Family Medicine; ATTEND Family Medicine
DX: J45.41 Moderate persistent asthma with (acute) exacerbation (principal); J18.9 Pneumonia, unspecified organism; I49.8 Other specified cardiac arrhythmias; Z88.2 Allergy status to sulfonamides; Z79.52 Long term (current) use of systemic steroids; Z79.899 Other long term (current) drug therapy
CPT/HCPCS: 36415; 80048; 85025; 86140; 87804; 87804-59; 94640; 94760; A9270-GY; J0696; J2920; J7613-GY